=== PATIENT | female | born 1965 | race African-American/Black ===

== ENCOUNTER 2022-04-03 14:56 | Emergency (ER) | payer OTHER ==
[~2022-04-03] VITALS: Ht 162.6 cm; Wt 59.0 kg
[2022-04-03 15:30] LABS: Basophils # (auto) 0.2 10 ^3/uL (0-0.2); Basophils % (auto) 2.7 % (0.0-2.0); Eosinophils # (auto) 0.3 10 ^3/uL (0-0.8); Eosinophils % (auto) 4.4 % (0.0-7.0); Hematocrit 40.6 % (36.0-46.0); Lymphocytes # (auto) 0.7 10 ^3/uL (0.4-5.4); Lymphocytes % (auto) 9.8 % (10.0-50.0); Mean Corpuscular Hemoglobin 30.2 pg (28.0-32.0); Mean Corpuscular Hgb Conc. 34.4 g/dL (32.0-36.0); Mean Corpuscular Volume 87.8 fL (80.0-100.0); Monocytes # (auto) 0.5 10 ^3/uL (0-1.3); Monocytes % (auto) 6.5 % (0.0-12.0); Neutrophils # (auto) 5.6 10 ^3/uL (1.6-8.6); Neutrophils % (auto) 76.6 % (37.0-80.0); Nucleated Red Blood Cells % 0.1 %; Red Blood Cells 4.62 10^6/uL (4.0-5.20); Red Cell Distribution Width 13.1 % (11.8-14.3); White Blood Cell 7.3 10^3/uL (4.4-10.8)
[2022-04-03] MEDS ORDERED: ALBUTEROL SULF 2.5 MG/0.5ML(0.5%) NEB SOLN NEB ONE (15:45)
[2022-04-03] MEDS ORDERED: methylPREDNISolone SOD SUCC 125 MG/2 ML VL IV ONE (15:45)
[2022-04-03] MEDS ORDERED: cefTRIAXone 1GM/50ML D5W 50 ML IV ONE (15:45)
[2022-04-03 15:47] LABS: Alanine Aminotransferase 30 U/L (13-56); Albumin 3.4 g/dL (3.4-5.0); Anion Gap 10 (5-15); Aspartate Aminotransferase 34 U/L (15-37); BUN/Creatinine Ratio 21.8; Blood Alcohol < 3.0 mg/dL (0-5); Blood Urea Nitrogen 22 mg/dL (7-18); Calcium 8.2 mg/dL (8.5-10.1); Carbon Dioxide 25 mmol/L (21-32); Chloride 107 mmol/L (98-107); GFR African American 73 mL/min; GFR Non-African American 60 mL/min; Glucose 99 mg/dL (74-106); Potassium 3.4 mmol/L (3.5-5.1); Sodium 142 mmol/L (136-145)
[2022-04-03 15:50] LABS: Alkaline Phosphatase 75 U/L (45-117); Total Protein 6.5 g/dL (6.4-8.2)
[2022-04-03 17:17] VITALS: BP 11/58
== END 2022-04-03 18:37 | disposition home or self-care (01) ==
LOC: ER 14:56 → EDBD 14:56 → ER 18:37
DX: T67.5XXA Heat exhaustion, unspecified, initial encounter (principal); R06.02 Shortness of breath; E11.9 Type 2 diabetes mellitus without complications; Z59.00 Homelessness unspecified; X58.XXXA Exposure to other specified factors, initial encounter
CPT/HCPCS: 36415; 70450; 71045; 80053; 80320; 84484; 85025; 93005; 94640; 96365; 96375; 99285; J0696; J2930